=== PATIENT | male | born 1970 | race Caucasian/White ===

== ENCOUNTER 2020-02-22 07:27 | Day surgery (SDC) | payer OTHER ==
[2020-02-16 13:38] LABS: HEMATOCRIT 46.5 % (37.9-51.0); HEMOGLOBIN 16.5 g/dL (13.5-17.0); MEAN CORPUSCULAR HEMOGLOBIN 31.1 pg (27.0-33.4); MEAN CORPUSCULAR HGB CONC 35.4 g/dL (32.0-36.0); MEAN CORPUSCULAR VOLUME 88 fl (80-97); PLATELET COUNT 234 10^3/uL (150-450); RED BLOOD COUNT 5.29 10^6/uL (4.35-5.55); RED CELL DISTRIBUTION WIDTH 13.2 % (11.5-14.0); WHITE BLOOD COUNT 6.1 10^3/uL (4.0-10.5)
[2020-02-16 13:40] LABS: APPEARANCE,URINE CLEAR; BILIRUBIN,URINE NEGATIVE (NEGATIVE); COLOR,URINE YELLOW; GLUCOSE, URINE NEGATIVE (NEGATIVE); KETONES,URINE NEGATIVE (NEGATIVE); LEUKOCYTE ESTERASE,URINE NEGATIVE (NEGATIVE); NITRITE,URINE NEGATIVE (NEGATIVE); PROTEIN,URINE NEGATIVE (NEGATIVE); URINE SPECIFIC GRAVITY 1.014; UROBILINOGEN,URINE NEGATIVE mg/dL (<2.0)
[2020-02-16 14:00] LABS: ANION GAP 11 (5-19); BLOOD UREA NITROGEN 18 mg/dL (7-20); CALCIUM 10.2 mg/dL (8.4-10.2); CARBON DIOXIDE 28 mmol/L (22-30); CHLORIDE 101 mmol/L (98-107); GLUCOSE 102 mg/dL (75-110); POTASSIUM 4.4 mmol/L (3.6-5.0)
[2020-02-16 14:11] LABS: ALCOHOL < 10 mg/dL (NONE DETECTED)
[2020-02-16 15:16] LABS: URINE AMPHETAMINES SCREEN NEGATIVE; URINE BARBITURATES SCREEN NEGATIVE; URINE BENZODIAZEPINES SCREEN NEGATIVE; URINE COCAINE SCREEN NEGATIVE; URINE MARIJUANA (THC) SCREEN NEGATIVE; URINE METHADONE SCREEN NEGATIVE; URINE PHENCYCLIDINE SCREEN NEGATIVE
[~2020-02-22 07:27] MED LIST: CEFAZOLIN 2 GM/D5W RTU 2 GM/50 ML RTUPB IV PRN; NORMAL SALINE 1000 ML 1,000 ML IV PRN
[2020-02-22] MEDS ORDERED: CEFAZOLIN 2 GM/D5W RTU 2 GM/50 ML RTUPB IV ONE (08:04)
[2020-02-22] MEDS ORDERED: MIDAZOLAM 2 MG/2 ML INJ ONE (09:59)
[2020-02-22] MEDS ORDERED: FENTANYL CITRATE INJ/PF 100 MCG/2 ML AMPUL ONE (09:59)
[2020-02-22] MEDS ORDERED: LIDOCAINE 2% INJ-PF (20 MG/ML) 10 ML AMPUL ONE (09:59)
[2020-02-22] MEDS ORDERED: PROPOFOL INJ 200 MG/20 ML VIAL IV ONE (09:59)
[2020-02-22] MEDS ORDERED: BACITRACIN INJ 50,000 UNIT VIAL ONE (10:01)
[2020-02-22] MEDS ORDERED: BUPIVACAINE INJ/PF LIPOSOME/PF 266 MG/20 ML SDV ONE (10:01)
[2020-02-22] MEDS ORDERED: BUPIVACAINE HCL 0.5 % INJ/PF 30 ML SDV ONE (10:01)
[2020-02-22] MEDS ORDERED: PROMETHAZINE HCL INJ 25 MG/1 ML VIAL IV PRN ×2 (10:38)
[2020-02-22] MEDS ORDERED: FENTANYL CITRATE INJ/PF 100 MCG/2 ML AMPUL IV PRN ×3 (10:38)
[2020-02-22] MEDS ORDERED: MEPERIDINE HCL/PF INJ 25 MG/1 ML DISP.SYRIN IV PRN (10:38)
[2020-02-22] MEDS ORDERED: ONDANSETRON HCL INJ/PF 4 MG/2 ML SDV IV PRN (10:38)
[2020-02-22] MEDS ORDERED: DIPHENHYDRAMINE HCL 50 MG/ML VIAL IV PRN (10:38)
--- NOTE | 2020-02-22 11:23 | Operative Report ---
Operative Report DATE OF SURGERY: 02/22/20 PREOPERATIVE DIAGNOSIS: Failure of spinal cord stimulator generator continued c hronic back and leg pain POSTOPERATIVE DIAGNOSIS: Failure of spinal cord stimulator generator continued chronic back and leg pain OPERATION: Removal of spinal cord stimulator generator testing of leads and replacement of spinal cord stimulator generator SURGEON: ANITRA SCHNEIDER 1ST [employer]MUNITION ASSEMBLY LABORER: VALDEMAR POLK ANESTHESIA: LMAC ESTIMATED BLOOD LOSS: 10 Cc PROCEDURE: Patient is brought into the operating room received 2 g of Ancef within 1 hour of cut time. The patient is positioned in the prone position on the Tani table with a Andrea frame attachment. After appropriate surgical timeout and after completion of prepping and draping the old incision is marked and the wound is infiltrated with 1.3% Exparel 20 cc mixed with 20 cc of 0.5% bupivacaine plain. After that sharp dissection was carried out no electrocaut chava was utilized. The generator was identified and the screwdriver was used to release the 2 wires from the generator the generator was removed whole and the wires were examined found to be intact connected to the new generator proclaim XR 5 from [employer] the wires and the leads were tested as well as the generator found to be conducting. The wound was irrigated with bacitracin irrigation then the subcu was reapproximated with 2-0 Vicryl and the skin with a running subcuticular Monocryl closure. The wound is dressed with benzoin Steri- Strips 4 x 4 and tape patient tolerated procedure well was brought to the supine position brought to recovery room condition stable. Please note this procedure cannot be done without the assistance of Inocente Romo and retracting in order to avoid any damage to the wires as we are attempting to remove the generator without using any electrocautery and to suction so we can visualize the generator and the wires clearly.
[2020-02-22] MEDS ORDERED: METHOCARBAMOL INJ/PF 1000 MG/10 ML SDV ONE (11:54)
[2020-02-22 13:11] VITALS: BP 160/95
--- OUTSIDE RECORDS SUMMARY | 2020-02-23 17:56 | XMS REPORT ---
:1970 [facility] Address [address] [address] Care Team Providers Name Role Phone Yon Attending Clinician Unavailable Emilee Attending Clinician Unavailable Marie GRAYSON N Unavailable Ralph Marvin PA-C Unavailable Allergies, Adverse Reactions, Alerts Allergy Allergy Status Severity Reaction(s) Onset Inactive Treating C omments Name Type Date Date Clinician Angelica Dominguez Inactive Blood 2018-04 *ANALGESICS *ANALGESIC disorder 05-01 - 00:00: ANTI-INFLAM ANTI-INFLA 00 MATORY* MMATORY* Motrin Motrin Inactive Blood *ANALGESICS *ANALGESIC disorder 08-18 - 00:00: ANTI-INFLAM ANTI-INFLA 00 MATORY* MMATORY* Ibuprofen Allergy to Active 2018- substance 05-19 00:00: 00 Adhesive Allergy to Active Rash substance Medications Ordered Filled Start Stop Current Ordering Indication Dosage Frequency Signature Comments Components Medication Medication Date Date Medication? Clinician (SIG) Name Name acetaminoph No acetaminop en 325 mg 09-12 hen 325 mg tablet Take 00:00: tablet 1 tablet 00 Take 1 every 4-6 tablet hours by every 4-6 oral route hours by as needed oral route for 90 as needed days. for 90 days. FreeStyle Yes Princess N 1{Hollie QD FreeStyle M edicatio Control 2-10 Cohrs liter} Control n taken Solution In 00:00: CNAII Solution as Vitro 00 In Vitro needed. Liquid Liquid 1 DX E11.65 (one) Milliliter daily, as needed for 30 days Quantity: 30 {Millilite r} Refills: 1 Ordered: 0 Cohrs CNAII, Princess N Start : 0Active Comments: Medication taken as needed. DX E11.65 Vitamin D3 2018-04 No 1{Table QD Vitamin D3 Complete 1-19 t} Complete Oral Tablet 10:18: Oral 19 Tablet 1 daily Active Vitamin E 2018-04 No 1{Capsu QD Vitamin E 400 UNIT 1-19 le} 400 UNIT Oral 10:17: Oral Capsule 01 Capsule 1 daily (400 UNIT) Active CoQ10 100 2018-04 No 1{Capsu QD CoQ10 100 MG Oral 1-19 le} MG Oral Capsule 10:16: Capsule 1 35 daily (100 MG) Active Pseudoephed No 1{Table Pseudoephe rine HCl 30 9-20 t} drine HCl MG Oral 00:00: 30 MG Oral Tablet 00 Tablet 1 (one) two times daily prn (30 MG) Start : 9Active FreeStyle No 1 QD FreeStyle Lite Test 8-13 Lite Test In Vitro 00:00: In Vitro Strip 00 Strip 1 (one) Each daily Start : 9Active Gabapentin No 1{Capsu Q0.3333D Gabapenti n Dr Flores 300 MG Oral 5-08 le} 300 MG Capsule 14:24: Oral 14 Capsule 1 three times daily (300 MG) Active Comments: Dr Flores Methocarbam No 1{Table QD Methocarba Dr Flores ol 750 MG 5-08 t} mol 750 MG Oral Tablet 14:24: Oral 14 Tablet 1 daily (750 MG) Active Comments: Dr Flores OxyCODONE No 1{Table OxyCODONE Med icatio HCl 10 MG 5-08 t} HCl 10 MG n take n Oral Tablet 14:24: Oral as 14 Tablet 1 needed. every [address] Flores 6 hours as needed for pain (10 MG) Active Comments: Medication taken as needed. Dr Flores Tylenol 325 No 0{Table QD Tylenol MG Oral 5-08 t} 325 MG Tablet 14:24: Oral 14 Tablet 4-5 daily (325 MG) Active Alcohol No Princess N 1{Pad} Alcohol Medica diane Swabs Pad 3-19 Cohrs Swabs Pad n take n 00:00: CNAII 1 (one) as 00 Pad Pad as needed. needed for 90 days Quantity: 1 {Box} Refills: 2 Ordered: 9 Cohrs CNAII, Princess N Start : 9Active Comments: Medication taken as needed. Alcohol No 1 Alcohol Medicatio Swabs Pad 3-19 Swabs Pad n take n 00:00: 1 (one) as 00 Pad as needed. needed Start : 9Active Comments: Medication taken as needed. FreeStyle No Princess N FreeStyle Lancets 3-19 Cohrs Lancets Miscellaneo 00:00: CNAII Miscellane us 00 ous as directed for 90 days Quantity: 1 {Box} Refills: 2 Ordered: 9 Cohrs CNAII, Princess N Start : 9Active FreeStyle 0 No FreeStyle Lancets 3-19 Lancets Miscellaneo 00:00: Miscellane us 00 ous as directed Start : 9Active FreeStyle 0 No Princess N 1{Each} QD FreeStyle Lite Test 3-19 Cohrs Lite Test In Vitro 00:00: CNAII In Vitro Strip 00 Strip 1 (one) Each Each daily for 90 days Quantity: 100 {Each} Refills: 2 Ordered: 9 Cohrs CNAII, Princess N Start : 9Active Accu-Chek 0 No Princess N 1{Kit} Accu-Chek E1 1.65, Bhakti Plus 2-06 Cohrs Bhakti Plus plea se w/Device 00:00: CNAII w/Device substit ut Kit 00 Kit 1 e based (one) Kit on Kit to formulary check FSBS qam as directed for 0 days Quantity: 1 Kit Refills: 0 Ordered: 19-May-2018 Cohrs CNAII, Princess N Start : 19-May-2018 Active Comments: E11.65, please substitute based on formulary Accu-Chek 2019-0 No 1 Accu-Chek E11.6 5, Bhakti Plus 2-06 Bhakti Plus plea se w/Device 00:00: w/Device substit ut Kit 00 Kit 1 e based (one) Kit on to check formulary FSBS qam as directed (w/Device) Start : 19-May-2018 Active Comments: E11.65, please substitute based on formulary fluticasone No 2{[place] fluticason propionate 6-05 } e 50 00:00: propionate mcg/actuati 00 50 on nasal mcg/actuat spray,suspe ion nasal nsion 2 spray,susp {spray}s by ension 2 nasal {spray}s route. by nasal route. Fluticasone 2019- No 2 Fluticason Propionate 6-05 03-01 e 50 MCG/ACT 00:00: 00:00 Propionate Nasal 00 :00 50 MCG/ACT Suspension Nasal Suspension 2 (two) [place] daily each nostril (50 MCG/ACT) Start : 15-Sep-2017 End : 9Discontin ued Fluticasone 2019- No Princess N 2{[place] Fluticaso n Propionate 6-03-01 Cohrs } e 50 MCG/ACT 00:00: 00:00 CNAII Propionate Nasal 00 :00 50 MCG/ACT Suspension Nasal Suspension 2 (two) [place] daily each nostril for 30 days Quantity: 1 {Bottle} Refills: 1 Ordered: 15-Sep-2017 Princess Long Start : 15-Sep-2017 End : 9Discontin ued lisinopril No 1{Table lisinopril 5 mg tablet 06-17 t} 5 mg 1 {tablet} 00:00: tablet 1 by oral 00 {tablet} route. by oral route. Lisinopril 2019- No 1 QD Lisinopril 5 MG Oral 06-17 5 MG Oral Tablet 00:00: 00:00 Tablet 1 00 :00 (one) Tablet daily (5 MG) Start : 17-Jun-2016 End : 9Discontin ued Lisinopril 2019- No Princess N 1{Table QD Lisinopril Mail 5 MG Oral 06-17 Cohrs t} 5 MG Oral order. Tablet 00:00: 00:00 CNAII Tablet 1 00 :00 (one) Tablet Tablet daily for 90 days Quantity: 90 {Tablet} Refills: 3 Ordered: 17-Jun-2016 Princess Long Start : 17-Jun-2016 End : 9Discontin ued Comments: Mail order. Flector 1.3 No Flector % 7-15 1.3 % transdermal 00:00: transderma 12 hour 00 l 12 hour patch Apply patch 1 patch Apply 1 twice a day patch by twice a transdermal day by route for transderma 30 days. l route for 30 days. GLUCOSAMINE No 1{Table QD GLUCOSAMIN COMPLEX 3-18 t} E COMPLEX (Oral 00:00: (Oral Tablet) 00 Tablet) 1 daily Start : 4Active diclofenac No diclofenac sodium 50 sodium 50 mg mg tablet,stacey tablet,del yed release ayed Take 1 release tablet Take 1 twice a day tablet by oral twice a route as day by needed for oral route 90 days. as needed for 90 days. acetaminoph No 1 Q5H acetaminop en 325 mg hen 325 mg tablet Take tablet 1 tablet Take 1 every 4-6 tablet hours by every 4-6 oral route hours by as needed oral route for 90 as needed days. for 90 days. Easy Touch No Easy Touch Alcohol Alcohol Prep Pads Prep Pads gabapentin No gabapentin 300 mg 300 mg capsule capsule Take 1 Take 1 capsule 3 capsule 3 times a day times a by oral day by route as oral route directed as for 90 directed days. for 90 days. Nasal No Nasal Decongestan Decongesta t nt (pseudoephe (pseudoeph drine) 30 edrine) 30 mg tablet mg tablet Take 1 Take 1 tablet tablet every day every day by oral by oral route as route as needed for needed for 30 days. 30 days. lisinopril No lisinopril 5 mg tablet 5 mg 1 {tablet} tablet 1 by oral {tablet} route. by oral route. methocarbam No methocarba ol 500 mg mol 500 mg tablet Take tablet 1 tablet Take 1 4.5 times tablet 4.5 daily times daily Narcan 4 No Narcan 4 mg/actuatio mg/actuati n nasal on nasal spray Call spray Call 911. Use 911. Use nasal spray nasal x 1. May spray x 1. repeat dose May repeat q2-3min dose until pt q2-3min responsive until pt or EMS responsive arrives or EMS arrives oxycodone No oxycodone 10 mg 10 mg tablet TK 1 tablet TK T PO TID 1 T PO TID THEN TK 1 THEN TK 1 AND /2 TS AND 1/2 TS PO HS PO HS Robaxin-750 No Robaxin-75 Take one 0 Take one tablet by tablet by mouth every mouth 8 hours as every 8 needed hours as needed Problems Condition Condition Condition Status Onset Resolution Last Treatin g Comments Name Details Category Date Date Treatment Clinician Date Problem No Known Condition Inactiv 2018-042019-03-01 Cohrs, Impairments e 05-01 10:18:26 Princess N 00:00: 00 Problem No Known Condition Inactiv 2018-08-18 Cohrs, Impairments e 08-18 14:24:21 Princess N 00:00: 00 History of History of Problem Inactiv Cohrs, tobacco use tobacco use e Princess N (Former (Former Smoker) Smoker) (Renamed (Renamed from from History of History of tobacco tobacco use) use) Complex Complex Problem Inactiv Marvin, sleep apnea sleep apnea e Karin F syndrome syndrome Depression Depression Problem Inactiv Cohrs, screening screening e Princess N negative negative (Renamed (Renamed from from Negative Negative depression depression screening) screening) Immunizatio Immunizatio Problem Inactiv Marvin, n not n not e Karin F carried out carried out because of because of patient patient refusal refusal (Renamed (Renamed from from Vaccination Vaccination not carried not carried out because out because of patient of patient refusal) refusal) Body mass Body Mass Problem Active index 30+ - Index 30+ - obesity Obesity Tinnitus Tinnitus Problem Active Essential Essential Problem Active hypertensio Hypertensio n n Hypertensiv Hypertensiv Problem Active e disorder e Disorder Nasal Nasal Problem Active congestion Congestion Arthritis Arthritis Problem Active Lumbar disc Lumbar Disc Problem Active prolapse Prolapse with with radiculopat Radiculopat hy hy Degeneratio Degeneratio Problem Active n of lumbar n of Lumbar interverteb Interverteb ral disc ral Disc Lumbosacral Lumbosacral Problem Active stenosis Stenosis Low back Low Back Problem Active pain Pain Lumbago Lumbago Problem Active with with sciatica Sciatica Lumbar Lumbar Problem Active radiculopat Radiculopat hy hy Sleep apnea Sleep Apnea Problem Active Apnea Apnea Problem Active Traumatic Traumatic Problem Active brain Brain injury Injury Traumatic Traumatic Problem Active brain 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 Consciousne ss ss Long-term Long-term Problem Active drug Drug therapy Therapy Screening Screening Problem Active status Status Malignant Malignant Problem Active neoplasm of Neoplasm of skin Skin Polyp of 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 Diabetes mellitus Mellitus Mixed Mixed Problem Active hypercholes Hypercholes terolemia terolemia and and hypertrigly Hypertrigly ceridemia ceridemia Hyperlipide Hyperlipide Problem Active regan regan Procedures Procedure Date / Time Performed Performing Clinician Ana Luisa toledo spinal cord stimulator battery 2020-02-22 00:00:00 replacement (SURG) XR, lumbar spine 2020-02-10 00:00:00 spinal cord stimulator battery 2020-02-10 00:00:00 replacement (SURG) Diastolic BP 80-89 (3079F) 2019-03-01 00:00:00 Karin Marvin Systolic BP 130 - 139 (3075F) 2019-03-01 00:00:00 Paul Marvin Negative Depression Screening 2019-03-01 00:00:00 Karin Marvin ([id number]) Offered patient flu vaccine 2019-03-01 00:00:00 Karin Marvin HG A1C LEVEL < 7.0% (3044F) 2018-08-18 00:00:00 Karin Marvin Diastolic BP < 80 (3078F) 2018-08-18 00:00:00 Karin Marvin Systolic BP < 130 (3074F) 2018-08-18 00:00:00 Karin Marvin Colonoscopy,screening 2018-07-27 00:00:00 Princess Salazar Diastolic 80-89 MM Hg. (HTN, CKD, 2016-12-03 10:59:00 CAD) (DM) (3079F) Systolic = 140 MM Hg. (HTN, CKD, 2016-12-03 10:58:00 CAD) (DM) (3077F) OFFICE OUTPATIENT VISIT 25 MINUTES 2016-12-03 10:57:00 Systolic Less than 130 MM HG (DM), 2016-06-17 10:37:00 (HTN, CKD, CAD) (3074F) Diastolic 80-89 MM Hg. (HTN, CKD, 2016-06-17 10:37:00 CAD) (DM) (3079F) OFFICE OUTPATIENT VISIT 15 MINUTES 2016-06-17 10:27:00 OFFICE OUTPATIENT VISIT 25 MINUTES 2016-04-15 11:19:00 Flu Vaccine 2016-04-15 00:00:00 Princess Salazar Pneumovax 2016-04-15 00:00:00 Princess Salazar Back Surgery 2016-04-08 00:00:00 Back Surgery 2016-04-08 00:00:00 Princess Salazar N IMPLANTABLE PUMP REPLACEMENT 2016-04-07 00:00:00 Back Surgery 2014-11-27 00:00:00 Lumbar Laminectomy (Surg) 2014-11-27 00:00:00 Back Surgery 2013-10-17 00:00:00 Back Surgery 2013-10-11 00:00:00 Other 2012-04-13 00:00:00 Hernia Repair 2002-04-13 00:00:00 Hernia Repair Discectomy Cohrs, Princess N Hernia Repair Cohrs, Princess N Laminectomy Cohrs, Princess N Results Test Description Test Time Test Comments Text Results Atomic Results Result Comments Drugs identified in Urine by Screen method 2019-09-14 17:18:00 Test Item Value Reference Range Comments RESULT THC (test code = RESULT THC) negative INTERPRETATION THC (test code = INTERPRETATION THC) normal RESULT BUP (Buprenorphine, Suboxone, Subutex) (test code = RESUL T BUP negative (Buprenorphine, Suboxone, Subutex)) INTERPRETATION BUP (Buprenorphine, Suboxone, Subutex) (test code = normal INTERPRETATION BUP (Buprenorphine, Suboxone, Subutex)) RESULT BAR (Barbiturates) (test code = RESULT BAR (Barbiturates) ) negative INTERPRETATION BAR (Barbiturates) (test code = INTERPRETATION BA R normal (Barbiturates)) RESULT BZO (Benzodiazepines) (test code = RESULT BZO ( Benzodiazepines)) negative INTERPRETATION BZO (Benzodiazepines) (test code = INTERPRETATION BZO normal (Benzodiazepines)) RESULT MTD (Methadone) (test code = RESULT MTD (Methadone)) nega tive INTERPRETATION MTD (Methadone) (test code = INTERPRETATION MTD n ormal (Methadone)) RESULT AMP (Amphetamines) (test code = RESULT AMP (Amphetamines) ) negative INTERPRETATION AMP (Amphetamines) (test code = INTERPRETATION AM P normal (Amphetamines)) RESULT MOP (Morphine, Heroin) (test code = RESULT MOP (Morphine, negative Heroin)) INTERPRETATION MOP (Morphine, Heroin) (test code = INTERPRETATIO N MOP normal (Morphine, Heroin)) RESULT OXY (Oxycodone) (test code = RESULT OXY (Oxycodone)) posi tive INTERPRETATION OXY (Oxycodone) (test code = INTERPRETATION OXY n ormal (Oxycodone)) RESULT MDMA (Ecstasy) (test code = RESULT MDMA (Ecstasy)) negati ve INTERPRETATION MDMA (Ecstasy) (test code = INTERPRETATION MDMA n ormal (Ecstasy)) RESULT PJ (Cocaine) (test code = RESULT PJ (Cocaine)) negative INTERPRETATION PJ (Cocaine) (test code = INTERPRETATION PJ (Co griselda)) normal RESULT PCP (test code = RESULT PCP) negative INTERPRETATION PCP (test code = INTERPRETATION PCP) normal RESULT MET (Methamphetamines) (test code = RESULT MET negative (Methamphetamines)) INTERPRETATION MET (Methamphetamines) (test code = INTERPRETATIO N MET normal (Methamphetamines)) Drugs identified in Urine by Screen [id number] 13:51:00 Test Item Value Reference Range Comments RESULT THC (test code = RESULT THC) negative INTERPRETATION THC (test code = INTERPRETATION THC) normal RESULT BUP (Buprenorphine, Suboxone, Subutex) (test negative code = RESULT BUP (Buprenorphine, Suboxone, Subutex)) INTERPRETATION BUP (Buprenorphine, Suboxone, normal Subutex) (test code = INTERPRETATION BUP (Buprenorphine, Suboxone, Subutex)) RESULT BAR (Barbiturates) (test code = RESULT BAR negative (Barbiturates)) INTERPRETATION BAR (Barbiturates) (test code = normal INTERPRETATION BAR (Barbiturates)) RESULT BZO (Benzodiazepines) (test code = RESULT negative BZO (Benzodiazepines)) INTERPRETATION BZO (Benzodiazepines) (test code = normal INTERPRETATION BZO (Benzodiazepines)) RESULT MTD (Methadone) (test code = RESULT MTD negative (Methadone)) INTERPRETATION MTD (Methadone) (test code = normal INTERPRETATION MTD (Methadone)) RESULT AMP (Amphetamines) (test code = RESULT AMP negative (Amphetamines)) INTERPRETATION AMP (Amphetamines) (test code = normal INTERPRETATION AMP (Amphetamines)) RESULT MOP (Morphine, Heroin) (test code = RESULT negative MOP (Morphine, Heroin)) INTERPRETATION MOP (Morphine, Heroin) (test code = normal INTERPRETATION MOP (Morphine, Heroin)) RESULT OXY (Oxycodone) (test code = RESULT OXY positive (Oxycodone)) INTERPRETATION OXY (Oxycodone) (test code = normal INTERPRETATION OXY (Oxycodone)) RESULT MDMA (Ecstasy) (test code = RESULT MDMA negative (Ecstasy)) INTERPRETATION MDMA (Ecstasy) (test code = normal INTERPRETATION MDMA (Ecstasy)) RESULT PJ (Cocaine) (test code = RESULT PJ negative (Cocaine)) INTERPRETATION PJ (Cocaine) (test code = normal INTERPRETATION PJ (Cocaine)) RESULT PCP (test code = RESULT PCP) negative INTERPRETATION PCP (test code = INTERPRETATION PCP) normal RESULT MET (Methamphetamines) (test code = RESULT negative MET (Methamphetamines)) INTERPRETATION MET (Methamphetamines) (test code = normal INTERPRETATION MET (Methamphetamines)) HGB A1C (93202)2019-03-01 00:00:00 Test Item Value Reference Range Comments HEMOGLOBIN GLYCLATED (HGB A1C) (test code = 4548-4) 5.9 % 0-5.7 Allowed every 91 days unless DM UncontrolledHGB A1C (29569)2018-08-18 00:00:00 Test Item Value Reference Range Comments HEMOGLOBIN GLYCLATED (HGB A1C) (test code = 4548-4) 5.9 % 0-5.7 Allowed every 91 days unless DM UncontrolledComp. Metabolic Panel (14) ([id number]) 2016-09-06 00:00:00 Test Item Value Reference Range Comments Chloride, Serum (test code = 2075-0) 97 mmol/L 96-106 Glucose, Serum (test code = 2345-7) 96 mg/dL 65-99 Protein, Total, Serum (test code = 2885-2) 7.4 g/dL 6.0-8 .5 Bilirubin, Total (test code = 1975-2) 0.5 mg/dL 0.0-1.2 BUN (test code = 3094-0) 12 mg/dL 6-24 BUN/Creatinine Ratio (test code = 3097-3) 10 9-20 Carbon Dioxide, Total (test code = 2028-9) 25 mmol/L 18-29 Globulin, Total (test code = 53231-5) 2.6 g/dL 1.5-4.5 Potassium, Serum (test code = 2823-3) 4.3 mmol/L 3.5-5.2 Alkaline Phosphatase, S (test code = 6768-6) 45 IU/L 39- 117 Creatinine, Serum (test code = 2160-0) 1.22 mg/dL 0.76-1.27 A/G Ratio (test code = 1759-0) 1.8 1.2-2.2 Calcium, Serum (test code = 33865-8) 10.0 mg/dL 8.7-10.2 ALT (SGPT) (test code = 1742-6) 41 IU/L 0-44 AST (SGOT) (test code = 1920-8) 31 IU/L 0-40 Sodium, Serum (test code = 2951-2) 140 mmol/L 134-144 Albumin, Serum (test code = 1751-7) 4.8 g/dL 3.5-5.5 Lipid Panel With LDL/HDL Ratio (85804)2016-09-06 00:00:00 Test Item Value Reference Range Comments LDL/HDL Ratio (test code = 81776-6) 2.9 ratio units 0.0-3.6 HDL Cholesterol (test code = 2085-9) 45 mg/dL >39 LDL Cholesterol Calc (test code = 90131-9) 130 mg/dL 0-99 Cholesterol, Total (test code = 2093-3) 208 mg/dL 100-199 Triglycerides (test code = 2571-8) 167 mg/dL 0-149 VLDL Cholesterol Jordan (test code = 64155-5) 33 mg/dL 5-40 Assessments Condition Name Status Diagnosis Date Treating Clinici an Lumbosacral stenosis Active 2020-02-06 11:05:08 Arthritis Active 2020-02-06 11:05:09 Adjustment to neurostimulator in Active 2020-02-10 11:5 9:29 cranial nerve Mechanical complication of nervous Active 2020-02-10 11 :59:53 system device Adjustment of implant Active 2020-02-10 12:02:21 Lumbar disc prolapse with radiculopathy Active 11:05:05 Degeneration of lumbar intervertebral Active 2020-02-06 11:05:06 disc Low back pain Active 2020-02-06 11:05:07 Low back pain Active 2020-01-20 13:12:23 Degeneration of lumbar intervertebral Active 2020-01-10 13:41:16 disc Lumbar post-laminectomy syndrome Active 2019-09-15 07:3 7:51 Traumatic brain injury Active 2019-09-14 13:59:28 Lumbar radiculopathy Active 2019-09-14 13:59:29 Long-term drug therapy Active 2019-09-14 14:02:30 Lumbar post-laminectomy syndrome Active 2019-06-16 13:1 0:52 Lumbar radiculopathy Active 2019-06-16 13:00:10 Traumatic brain injury Active 2019-06-16 13:00:09 Low back pain Active 2019-03-22 13:41:48 Lumbar radiculopathy Active 2019-03-22 13:41:00 Degeneration of lumbar intervertebral Active 2019-03-22 13:41:50 disc Traumatic brain injury Active 2019-03-22 13:40:58 Long-term drug therapy Active 2019-03-22 13:51:21 Body mass index (BMI) of 37.0 to 37.9 Active in adult Body mass index (BMI) of 37.0 to 37.9 Active in adult Complex sleep apnea syndrome Active Complex sleep apnea syndrome Active Body mass index (BMI) of 36.0 to 36.9 Active in adult Body mass index (BMI) of 36.0 to 36.9 Active in adult Degenerative disc disease, lumbar Active Degenerative disc disease, lumbar Active Degenerative disc disease, lumbar Active Elevated triglycerides with high Active cholesterol Lumbago with sciatica Active Lumbago with sciatica Active Lumbago with sciatica Active TBI (traumatic brain injury) Active TBI (traumatic brain injury) Active Arthritis Active Arthritis Active Colon polyps Active Colon polyps Active Skin cancer Active Skin cancer Active Elevated triglycerides with high Active cholesterol Elevated triglycerides with high Active cholesterol Hypertension Active Hypertension Active Encounters Start End Encounter Admission Attending Care Care Encounter Date/Time Date/Time Type Type Clinicians Facility Department ID 2020-02-10 2020-02-10 Maximo Murphy [id number] 00:00:00 00:00:00 [facility] MD: [address] [facility], [place] [address], Ph. 2020-01-20 2020-01-20 Kenneth Sandhu _2019 100 00:00:00 00:00:00 [facility] 9 MD Sandra: [facility] [address] [facility], [place] [address], Ph. 2020-01-10 2020-01-10 Rodrigo Sandhu 00:00:00 00:00:00 [facility] 9 PA-C: [address] [address], [place] [address], Ph. 2019-09-14 2019-09-14 [facility] 060 00:00:00 00:00:00 [facility] 3 PA-C: [address], [place] [address], Ph. 2019-06-16 2019-06-16 [facility] 030 00:00:00 00:00:00 [facility] Pain Center 5 PA-C: [address], [place] [address], Ph. 2019-05-23 2019-05-23 Historical [place] [id number] 13:15:42 13:17:53 [facility]- 2019-03-23 2019-03-23 Historical [place] [id number] 16:36:45 16:37:40 [facility]- 2019-03-22 2019-03-22 [facility] 121 00:00:00 00:00:00 [facility], [facility] Pain Center 0 PA-C: [address], [place] [address], Ph. 2019-03-04 2019-03-04 Historical [place] [id number] 15:53:52 15:54:47 [facility]- 2019-03-02 2019-03-02 Historical [place] [id number] 16:58:00 16:59:20 [facility]- 2019-03-01 2019-03-01 Office [place] [id number] 09:53:47 11:05:21 [facility]- 2018-08-18 2018-08-18 Office [place] [id number] 14:23:30 15:19:21 Visit [facility] 2016-12-03 2016-12-03 Outpatient SUZY Marvin [place] [id number] 10:57:00 10:57:00 [facility] 2016-06-17 2016-06-17 Outpatient SUZY Hebert [id number] 10:27:00 10:27:00 [facility] 2016-04-15 2016-04-15 Outpatient SUZY Hebert [id number] 11:19:00 11:19:00 [facility] Family History Family Member Diagnosis Comments Start Date Stop Date Unspecified Breast cancer Mother. Unspecified Diabetes Mellitus Father. Paternal Grandmother. Unspecified Hypertension Mother. Father. Payers Payer Name Policy Type Policy Number Effective Date Expiration D ate [employer] Plan of Treatment Planned Activity Planned Date Details Comments Future Scheduled Test [code = ] Future Scheduled Test [code = ] Future Scheduled Test [code = ] Future Scheduled Test [code = ] Future Scheduled Test [code = ] Future Scheduled Test [code = ] Future Scheduled Test [code = ] Future Scheduled Test [code = ] Future Scheduled Test [code = ] Future Scheduled Test [code = ] Future Scheduled Test [code = ] Future Scheduled Test [code = ] Future Scheduled Test [code = ] Future Scheduled Test [code = ] Future Scheduled Test [code = ] Future Scheduled Test [code = ] Future Scheduled Test [code = ] Future Scheduled Test [code = ] Future Scheduled Test [code = ] Future Scheduled Test [code = ] Future Scheduled Test [code = ] Future Scheduled Test [code = ] Future Scheduled Test [code = ] Future Scheduled Test [code = ] Future Scheduled Test [code = ] Future Scheduled Test [code = ] Future Scheduled Test [code = ] Future Appointment 2020-03-27 13:40:00 Rodrigo Walls, [address], [place] [address] Future Appointment 2020-03-06 10:20:00 Maximo Duncan, [address] [place] [address] Social History Social Habit Start Date Stop Date Comments Alcohol Use: Drug Use: Exercise History: Tobacco Use: quit 2006 Smoking Status Start Date Stop Date Former smoker Vital Signs Vital Name Observation Time Observation Value Comments Height 2020-02-10 00:00:00 68 [in_i] BMI (Body Mass Index) 2020-02-10 00:00:00 31.9 kg/m2 Body Weight 2020-02-10 00:00:00 210 [lb_av] BP Systolic 2019-09-14 00:00:00 178 mm[Hg] Body Weight 2019-09-14 00:00:00 200 [lb_av] BP Diastolic 2019-09-14 00:00:00 97 mm[Hg] Height 2019-09-14 00:00:00 68 [in_i] BMI (Body Mass Index) 2019-09-14 00:00:00 30.4 kg/m2 BP Diastolic 2019-06-16 00:00:00 78 mm[Hg] Height 2019-06-16 00:00:00 68 [in_i] BMI (Body Mass Index) 2019-06-16 00:00:00 30.4 kg/m2 BP Systolic 2019-06-16 00:00:00 135 mm[Hg] Body Weight 2019-06-16 00:00:00 200 [lb_av] BP Diastolic 2019-03-22 00:00:00 76 mm[Hg] Height 2019-03-22 00:00:00 68 [in_i] BMI (Body Mass Index) 2019-03-22 00:00:00 30.4 kg/m2 BP Systolic 2019-03-22 00:00:00 120 mm[Hg] Body Weight 2019-03-22 00:00:00 200 [lb_av] BP Systolic 2019-03-01 10:56:33 130 mm[Hg] Patient Posi tion: Sitting; Cuff Location: Left A rm; Cuff Size: Stand babar BP Diastolic 2019-03-01 10:56:33 84 mm[Hg] Patient Posi tion: Sitting; Cuff Location: Left A rm; Cuff Size: Stand babar Pulse 2019-03-01 10:11:36 76 /min Pattern: Reg ular BP Systolic 2019-03-01 10:11:36 140 mm[Hg] Patient Posi tion: Sitting; Cuff Location: Left A rm; Cuff Size: Stand babar BP Diastolic 2019-03-01 10:11:36 92 mm[Hg] Patient Posi tion: Sitting; Cuff Location: Left A rm; Cuff Size: Stand babar Weight 2019-03-01 10:11:36 220 [lb_av] Height 2019-03-01 10:11:36 68 [in_us] Body Mass Index 2019-03-01 10:11:36 33.45 kg/m2 Calculated Pulse 2018-08-18 14:24:24 76 /min Pattern: Reg ular BP Systolic 2018-08-18 14:24:24 110 mm[Hg] Patient Posi tion: Sitting; Cuff Location: Left A rm; Cuff Size: Stand babar BP Diastolic 2018-08-18 14:24:24 64 mm[Hg] Patient Posi tion: Sitting; Cuff Location: Left A rm; Cuff Size: Stand babar Weight 2018-08-18 14:24:24 218 [lb_av] Height 2018-08-18 14:24:24 68 [in_us] Body Mass Index 2018-08-18 14:24:24 33.15 kg/m2 Calculated Hospital Discharge Instructions 1. Lumbar disc prolapse with radiculopathy XR, lumbar spine spinal cord stimulator battery replacement (SURG) 2. Degeneration of lumbar intervertebral disc 3. Low back pain getting back to normal after low back pain: care instructions 4. Lumbosacral stenosis 5. Arthritis 6. Adjustment to ne urostimulator in cranial nerve 7. Mechanical complication of nervous system device spinal cord stimulator battery replacement (SURG) 8. Adjustment of implant Discussion Note The rescheduled for spinal cord stimulator generator battery exchange and testing of paddle and leads and generator and other indicated procedures. Surgery Counseling We discussed various methods of treatment for this diagnosis, including both non-surgical and surgical treatment options. The procedure was discussed in detail, including rationale for proceeding with the procedure, specifics of the technical aspects of the pro cedure, and the expected postoperative course including the possible need for activity modification,therapy, and duration of expected recovery. Risks to surgery include: pain, numbing, scar, infection, loss of motion, nerve or vascular injury, stiffness, blood loss, reoccurrence, re-operation, non-union or mal-union, fracture, dislocation, unequal leg lengths, allergic reaction to medicine, heart attack, stroke or . Risks of allograft and blood transfusions include; infection, allergic reaction, disease transmission including hepatits or AIDS virus. Complications, including blood loss and pote ntial need for transfusion, nerve injury, infection, success rates (expected outcomes) of the procedure, and risk of from anesthesia were discussed. Patient fully understands that there are no guarantees with surgical intervention. The patient voiced understanding of the procedure and risks, and the decision for surgery was made today.1. Degeneration of lumbar intervertebral disc oxycodone 10 mg tablet Discussion Note NOTE: This encounter has been documented utilizing voice recognition software. While this note has been edited for accuracy, the software periodically misinterprets speech resulting in errors that might not have been caught during the editing process. In the event that you find an unusual error in this record,please notify us to resolve the issue. Patient educational handouts: No information available.1. Lumbar post- laminectomy syndrome 2. Traumatic brain injury 3. Lumbar radiculopathy 4. Long- term drug therapy drug screen, urine drug screen, urine Discussion Note: None recorded. Patient educational handouts: No information available.1. Lumbar post-laminectomy syndrome oxycodone 10 mg tablet diclofenac sodium 50 mg tablet,delayed release 2. Lumbar radiculopathy 3. Traumatic brain injury Discussion Note NOTE: This encounter has been documented utilizing voice recognition software. While this note has been edited for accuracy, the software periodically misinterprets speech resulting in errors that might not have been caught during the editing process. In the event that you find an unusual error in this record, please notify us to resolve the issue. Patient educational handouts: No information available.NameDatesDetailsNo Instruction Information AvailableNameDatesDetailsNo Instruction Information Available1. Low back pain back care and preventing injuries: care instructions getting back to normalafter low back pain: care instructions learning about relief for back pain oxycodone 10 mg tablet 2. Lumbar radiculopathy 3. Degeneration of lumbar intervertebral disc 4. Traumatic brain injury5. Long-term drug therapy drug screen, urine drug screen, urine Discussion Note NOTE: This encounter has been documented utilizing voice recognition software. While this note has been editedfor accuracy, the software periodically misinterprets speech resulting in errors that might not havebeen caught during the editing process. In the event that you find an unusual error in this record, please notify us to resolve the issue.NameDatesDetailsNo Instruction Information Available NameDatesDetailsNo Instruction Information AvailableNameDatesDetailsNo Instruction Information AvailableNameDatesDetailsElevated triglycerides with high cholesterol : High Cholesterol Indication: Elevatedtriglycerides with high cholesterol
--- NOTE | 2020-02-24 09:49 | PDOC DISCHARGE SUMMARY ---
General - Admit/Disc Date/PCP Admission Date/Primary Care Provider: 02/22/20 Discharge Date: 02/22/20 - Discharge Diagnosis Final Diagnosis: s/p removal of failed Spinal cord stimulator and replacement of it and testing of leads - Assessment Summary: Patient is doing well and will be discharged home today - Additional Information Resuscitation Status: Full Code Discharge Diet: As Tolerated, Full Liquids Discharge Activity: No Lifting Over 10 Pounds, No Lifting/Push/Pulling, Other Referrals: ANITRA SCHNEIDER MD [ASSOCIATE] - Home Medications: Cholecalciferol (Vitamin D3) [Vitamin D3 1000 Unit Tablet] 1,000 unit PO DAILY 02/16/20 Gabapentin 300 mg PO DAILY 02/16/20 Glucosamine/MSM/Chondroitin A [Glucosamine Chondroit MSM Tab] 1 tab PO DAILY 02/16/20 Lisinopril [Prinivil] 1.25 mg PO DAILY 02/16/20 Magnesium Amino Acid Chelate [Magnesium] 100 mg PO DAILY 02/16/20 Methocarbamol [Robaxin 500 mg Tablet] 500 mg PO TID 02/16/20 Oxycodone HCl/Acetaminophen [Percocet 5-325 mg Tablet] 1 - 2 tab PO QID 02/16/20 Vitamin E 100 unit PO DAILY 02/16/20 History of Present Illiness History of Present Illness: LARISSA LANGE is a 49 year old male Physical Exam Vital Signs: Temp Pulse Resp BP Pulse Ox 98.1 F 61 16 160/95 H 100 02/22/20 13:05 02/22/20 13:05 02/22/20 13:05 02/22/20 13:05 02/22/20 13:05 Intake & Output 02/23/20 02/24/20 02/25/20 06:59 06:59 06:59 Intake Total 1000 Balance 1000 Weight 97.52 kg Results Laboratory Results: WBC 6.1 10^3/uL (4.0-10.5) 02/16/20 12:25 RBC 5.29 10^6/uL (4.35-5.55) 02/16/20 12:25 Hgb 16.5 g/dL (13.5-17.0) 02/16/20 12:25 Hct 46.5 % (37.9-51.0) 02/16/20 12:25 MCV 88 fl (80-97) 02/16/20 12:25 MCH 31.1 pg (27.0-33.4) 02/16/20 12:25 MCHC 35.4 g/dL (32.0-36.0) 02/16/20 12:25 RDW 13.2 % (11.5-14.0) 02/16/20 12:25 Plt Count 234 10^3/uL (150-450) 02/16/20 12:25 Sodium 140.1 mmol/L (137-145) 02/16/20 12:25 Potassium 4.4 mmol/L (3.6-5.0) 02/16/20 12:25 Chloride 101 mmol/L (98-107) 02/16/20 12:25 Carbon Dioxide 28 mmol/L (22-30) 02/16/20 12:25 Anion Gap 11 (5-19) 02/16/20 12:25 BUN 18 mg/dL (7-20) 02/16/20 12:25 Creatinine 0.96 mg/dL (0.52-1.25) 02/16/20 12:25 Est GFR ( Amer) > 60 (>60) 02/16/20 12:25 Est GFR (MDRD) Non-Af > 60 (>60) 02/16/20 12:25 Glucose 102 mg/dL (75-110) 02/16/20 12:25 POC Glucose 104 mg/dL (70-110) 02/22/20 09:35 Hemoglobin A1c % 5.6 % (4.7-6.0) 02/16/20 12:25 Calcium 10.2 mg/dL (8.4-10.2) 02/16/20 12:25 Urine Color YELLOW 02/16/20 12:15 Urine Appearance CLEAR 02/16/20 12:15 Urine pH 5.0 (5.0-9.0) 02/16/20 12:15 Ur Specific [place] 1.014 02/16/20 12:15 Urine Protein NEGATIVE mg/dL (NEGATIVE) 02/16/20 12:15 Urine Glucose (UA) NEGATIVE mg/dL (NEGATIVE) 02/16/20 12:15 Urine Ketones NEGATIVE mg/dL (NEGATIVE) 02/16/20 12:15 Urine Blood NEGATIVE (NEGATIVE) 02/16/20 12:15 Urine Nitrite NEGATIVE (NEGATIVE) 02/16/20 12:15 Urine Bilirubin NEGATIVE (NEGATIVE) 02/16/20 12:15 Urine Urobilinogen NEGATIVE mg/dL (<2.0) 02/16/20 12:15 Ur Leukocyte Esterase NEGATIVE (NEGATIVE) 02/16/20 12:15 Urine WBC (Auto) 0 /HPF 02/16/20 12:15 Urine RBC (Auto) 0 /HPF 02/16/20 12:15 Urine Mucus (Auto) RARE /LPF 02/16/20 12:15 Urine Ascorbic Acid NEGATIVE (NEGATIVE) 02/16/20 12:15 Urine Opiates Screen UNCONFIRMED POSITIVE 02/16/20 12:15 Ur Opiates Confirm Negative ([id number]) 02/16/20 12:15 Urine Methadone Screen NEGATIVE 02/16/20 12:15 Ur Barbiturates Screen NEGATIVE 02/16/20 12:15 Ur Phencyclidine Scrn NEGATIVE 02/16/20 12:15 Ur Amphetamines Screen NEGATIVE 02/16/20 12:15 U Benzodiazepines Scrn NEGATIVE 02/16/20 12:15 Urine Cocaine Screen NEGATIVE 02/16/20 12:15 U Marijuana (THC) Screen NEGATIVE 02/16/20 12:15 Serum Alcohol < 10 mg/dL (NONE DETECTED) 02/16/20 12:25 COVID-19 Source See comment 02/16/20 12:10 COVID-19 ([facility]) Not Detected (Not Detect) 02/16/20 12:10
== END 2020-02-22 13:05 | disposition home or self-care (01) ==
LOC: OROUT 07:27
PROVIDERS: ATTEND Orthopaedic Surgery
DX: T85.113A Breakdown (mechanical) of implanted electronic neurostimulator, generator, initial encounter (principal); Y83.8 Other surgical procedures as the cause of abnormal reaction of the patient, or of later complication, without mention of misadventure at the time of the procedure; M51.16 Intervertebral disc disorders with radiculopathy, lumbar region; M51.36 Other intervertebral disc degeneration, lumbar region; M48.07 Spinal stenosis, lumbosacral region; M19.90 Unspecified osteoarthritis, unspecified site; I10 Essential (primary) hypertension; G47.39 Other sleep apnea; Z03.818 Encounter for observation for suspected exposure to other biological agents ruled out; Z45.42 Encounter for adjustment and management of neurostimulator; Z79.899 Other long term (current) drug therapy; Z87.820 Personal history of traumatic brain injury; Z87.891 Personal history of nicotine dependence; Z85.828 Personal history of other malignant neoplasm of skin; Z02.83 Encounter for blood-alcohol and blood-drug test
CPT/HCPCS: 63685; 82962; 80307 ×2; 85027; 87635; 80048; 81001; 87070; 83036; 80361; C1767; J2250; J3490 ×3; J3010; J2800; J2704; J0690; C9290; C9803; 300